=== PATIENT | male | born 1995 | race Hispanic/Latino ===

== ENCOUNTER 2025-03-02 14:19 | Emergency (ER) | payer SELFPAY ==
[2025-03-02 15:25] LABS: Absolute Eosinophils 0.2 K/uL (0-0.5); Absolute Monocytes 0.5 K/uL (0.1-1.3); Absolute Neutrophil 3.8 K/uL (1.8-8.0); Basophils % 0.7 % (0-1.3); Eosinophils % 3.1 % (0-4.4); Hematocrit 49.5 % (39.6-49.0); Hemoglobin 17.8 g/dL (13.6-17.9); MCH 32.4 pg (27.0-35.0); MCV 90.1 fL (80-100); MPV 9.2 fL (7.6-11.3); Monocytes % 8.1 % (3.3-12.3); Neutrophils % 58.1 % (41.7-73.7); Nucleated Red Blood Cells % 0.1 % (0-0); Platelets 268 thou/uL (152-406); RBC Red Blood Cell Count 5.49 M/uL (4.33-5.43); Red Cell Distribution Width 13.4 % (12.1-15.2)
[2025-03-02 15:33] LABS: Specific Gravity < 1.005 (1.005-1.030); Urine Bilirubin NEGATIVE (Negative); Urine Blood Negative (Negative); Urine Clarity Clear (Clear); Urine Color Colorless (Yellow); Urine Glucose NEGATIVE (Negative); Urine Ketones NEGATIVE (Negative); Urine Microscopic Reflex YN NO UMIC; Urine Nitrite NEGATIVE (Negative); Urine Protein NEGATIVE (Negative); Urine Urobilinogen Normal (Normal); Urine pH 7.5 (5.0-7.0)
[2025-03-02 15:37] LABS: PT Prothrombin Time 11.5 SECONDS (10-13.0); PTT, Activated Partial Thromb 31.5 SECONDS (27.2-37.4); Protime INR 1.01
--- NOTE | 2025-03-02 15:44 | RAD REPORT ---
EXAM: Chest Single View HISTORY: 29 years Male [place] COMPARISON: None. FINDINGS: LUNGS/PLEURA: The lungs are clear. No pleural effusions or pneumothorax. No pulmonary edema. CARDIAC/MEDIASTINUM: The cardiac silhouette is within normal limits. UPPER ABDOMEN: No significant abnormality. BONES: No acute abnormality. LINES/TUBES/OTHER: N/A IMPRESSION: No evidence of acute cardiopulmonary disease.
[2025-03-02 15:46] LABS: ALT/SGPT 26 U/L (16-61); Albumin 4.2 g/dL (3.4-5.0); Alkaline Phosphatase 120 U/L (45-117); Anion Gap 9.6 mEq/L (5.0-15.0); BUN Blood Urea Nitrogen 14 mg/dL (7-18); Bicarbonate 26 mEq/L (21-32); Bilirubin Total 0.3 mg/dL (0.2-1.0); Globulin 4.1 g/dL (2.3-3.5); Glomerular Filtration Rate 96 ml/min (=/>90); Glucose Level 99 mg/dL (74-106); Potassium 3.6 mEq/L (3.5-5.1); Protein, Total 8.3 g/dL (6.4-8.2); Sodium Level 137 mEq/L (136-145)
--- NOTE | 2025-03-02 15:55 | RAD REPORT ---
EXAMINATION: Head Brain Wo Cont CLINICAL INDICATION: Male, 29 years old.Dizziness;Confused TECHNIQUE: Axial CT images from the skull base to the vertex without intravenous contrast. Coronal an d sagittal reformatted images were created from the data set. One or more of the following dose reduction techniques were used: Automated exposure control, adjustment of the mA and/or kV according to patient size, and/or iterative reconstruction. Unless otherwise specified, incidental findings do not require dedicated imaging follow-up. [id number]. COMPARISON: No prior exam. FINDINGS: INTRACRANIAL: No acute intracranial hemorrhage. No hydrocephalus. No mass effect or midline shift. No significant white matter disease. VASCULATURE: No visualized abnormalities in the arteries or dural venous sinuses. SCALP/SKULL: No calvarial fracture identified. No acute soft tissue abnormality. SINUSES: The visualized paranasal sinuses are mostly clear. No significant mastoid fluid. IMPRESSION: No acute intracranial abnormality.
[2025-03-02 15:56] LABS: AST/SGOT < 10 U/L (15-37); Bilirubin Direct < 0.2 mg/dL (0-0.2); Bilirubin Indirect, Calculated 0.1 mg/dL (0.2-0.8); Troponin High Sensitivity < 3.0 pg/mL (<58.9)
--- NOTE | 2025-03-02 16:32 | EDPHYS ---
Physician Documentation [facility] Name: Raul Mcmullen Age: 29 yrs Sex: Male : 1995 Arrival Date: 03/02/2025 Time: 14:19 Bed 15 Private MD: ED Physician Junior Ford HPI: 03/02 16:56 This 29 yrs old Male presents to ER via Ambulatory with complaints of kb Dizziness, Near Syncope. 16:56 Patient is a 29-year-old male with a history of seizures who presents for dizziness kb that has been intermittent since November. Patient states sometimes he has confusion whenever this dizziness comes on as well. States he came in today because he felt like he might pass out. Denies chest pain, shortness of breath, seizures.. Historical: - Allergies: 14:25 No Known Allergies; aa5 - Home Meds: 14:25 None [Active]; aa5 - PMHx: 14:25 Seizure; aa5 - PSHx: 14:25 None; aa5 - Immunization history:: Adult Immunizations unknown. - Infectious Disease History:: Denies. - Social history:: Smoking status: Patient/guardian denies using tobacco, Stopped _ months ago 6. ROS: 16:31 Constitutional: As per HPI kb Exam: 15:10 Constitutional: This is a well developed, well nourished patient who is awake, alert, kb and in no acute distress. Head/Face: Normocephalic, atraumatic. ENT: Moist Mucous membranes Cardiovascular: Regular rate Respiratory: Respirations even and unlabored. No increased work of breathing. Talking in full sentences Abdomen/GI: Soft, non-tender. No distention Skin: Warm, dry with normal turgor. Normal color. MS/ Extremity: Pulses equal, no cyanosis. Neurovascular intact. Full, normal range of motion. Neuro: Awake and alert, GCS 15, oriented to person, place, time, and situation. 15:10 ECG was reviewed by the Attending Physician. Vital Signs: 14:23 BP 143 / 81; Pulse 101; Resp 20 S; Temp 97.5(TE); Pulse Ox 100% on R/A; Height 5 ft. 3 aa5 in. (R); 15:22 BP 136 / 78; Pulse 83; Resp 18; Pulse Ox 99% on R/A; ph 16:45 BP 126 / 70 Supine; Pulse 65; ph 16:45 BP 120 / 72 Sitting; Pulse 73; ph 16:45 BP 135 / 89; Pulse 80; Resp 18; Temp 97.2; Pulse Ox 99% on R/A; ph MDM: 14:23 Medical Screening Exam initiated kb 16:31 Data reviewed: vital signs, nurses notes. kb 16:55 Differential diagnosis: cardiac arrhythmia, generalized weakness, idiopathic dizziness, kb near-syncope, Anxiety. Historians other than the Patient: Spouse/Significant Other: Significant other. Counseling: I had a detailed discussion with the patient and/or guardian regarding the historical points, exam findings, and any diagnostic results supporting the discharge/admit diagnosis, lab results, the need for outpatient follow up, a family practitioner, to return to the emergency department if symptoms worsen or persist or if there are any questions or concerns that arise at home. ED course: Patient request medication for anxiety to take as needed because he believes that is the cause of the symptoms.. 03/02 14:29 Order name: Basic Metabolic Panel; Complete Time: 16:05 kb 03/02 14:29 Order name: CBC with Diff; Complete Time: 15:28 kb 03/02 14:29 Order name: Hepatic Function; Complete Time: 16:05 kb 03/02 14:29 Order name: Magnesium; Complete Time: 16:05 kb 03/02 14:29 Order name: Protime (+inr); Complete Time: 15:42 kb 03/02 14:29 Order name: Ptt, Activated; Complete Time: 15:42 kb 03/02 14:29 Order name: Troponin High Sensitivity; Complete Time: 16:05 kb 03/02 14:29 Order name: Urinalysis w/ reflexes; Complete Time: 15:42 kb 03/02 14:29 Order name: Chest Single View XRAY; Complete Time: 15:54 kb 03/02 14:40 Order name: CT Head Brain wo Cont; Complete Time: 16:05 kb 03/02 14:29 Order name: Cardiac monitoring; Complete Time: 15:23 kb 03/02 14:29 Order name: EKG - Nurse/Tech; Complete Time: 15:23 kb 03/02 14:29 Order name: IV Saline Lock; Complete Time: 15:23 kb 03/02 14:29 Order name: Labs collected and sent; Complete Time: 15:23 kb 03/02 14:29 Order name: NPO; Complete Time: 15:23 kb 03/02 14:29 Order name: O2 Per Protocol; Complete Time: 15:23 kb 03/02 14:29 Order name: O2 Sat Monitoring; Complete Time: 15:23 kb 03/02 14:29 Order name: Orthostatics; Complete Time: 16:30 kb EC:10 Rate is 78 beats/min. Rhythm is regular. QRS [place] is Normal. [place] interval is normal at kb 176 msec. QRS interval is normal at 90 msec. QT interval is normal at 385 msec. Administered Medications: No medications were administered Disposition Summary: 03/02/25 16:31 Discharge Ordered Notes: Location: Home kb Condition: Stable kb Diagnosis - Dizziness and giddiness kb - Syncope Near kb Followup: kb - With: Emergency Department - When: As needed - Reason: Worsening of condition Followup: kb - With: Private Physician - When: 2 - 3 days - Reason: Recheck today's complaints, Continuance of care, Re-evaluation by your physician Discharge Instructions: - Discharge Summary Sheet kb - Near-Syncope, [id number] kb - Dizziness, [id number] kb Forms: - Medication Reconciliation Form kb - Antibiotic Education kb - Prescription Opioid Use kb - Patient Portal Instructions kb - Leadership Thank You Letter kb Prescriptions: - Hydroxyzine HCl 25 mg Oral tablet - take 1 tablet ORAL route every 8 hours As needed; 12 tablet; Refills: 0, kb Product Selection Permitted Addendum: 03/04/2025 09:03 Co-signature as Attending Physician, Junior Ford MD I reviewed the patient's care r n provided by the Advanced Practice Provider and agree with the diagnosis and treatment plan. Signatures: Dispatcher [employer] EDNJ Keyonna Soriano, RETAIL STORE MANAGER-C RETAIL STORE MANAGER-Ckb Junior Ford MD MD rn Calderon, Audri, RN RN aa5 Corrections: (The following items were deleted from the chart) 03/02 14:29 14:29 BASIC METABOLIC PANEL+C.LAB.BRZ ordered. EDMS EDMS 14:29 14:29 CBC+H.LAB.BRZ ordered. EDMS EDMS 14:29 14:29 HEPATIC FUNCTION+C.LAB.BRZ ordered. EDMS EDMS 14:29 14:29 MAGNESIUM+C.LAB.BRZ ordered. EDMS EDMS 14: PROTIME (+INR)+COAG.LAB.BRZ ordered. EDMS EDMS 14: PTT, ACTIVATED+COAG.LAB.BRZ ordered. EDMS EDMS 14: Troponin High Sensitivity+C.LAB.BRZ ordered. EDMS EDMS 14: Urinalysis+U.LAB.BRZ ordered. EDMS EDMS 14: Chest Single View+RAD.RAD.BRZ ordered. EDMS EDMS
--- NOTE | 2025-03-02 16:32 | ER ---
Nurse's Notes [facility] Name: Raul Mcmullen Age: 29 yrs Sex: Male : 1995 Arrival Date: 03/02/2025 Time: 14:19 Bed 15 Private MD: Diagnosis: Dizziness and giddiness;Syncope Near Presentation: 03/02 14:23 Chief complaint: Patient states: "dizziness, feeling like I am going to pass out for a aa5 while now". Pt also reports intermittent SOB. Coronavirus screen: At this time, the client does not indicate any symptoms associated with coronavirus-19. Ebola Screen: Patient denies travel to an Ebola-affected area in the 21 days before illness onset. Initial Sepsis Screen: Does the patient meet any 2 criteria? No. Patient's initial sepsis screen is negative. Does the patient have a suspected source of infection? No. Patient's initial sepsis screen is negative. Risk Assessment: Do you want to hurt yourself or someone else? Patient reports no desire to harm self or others. Onset of symptoms was 2024. 14:23 Method Of Arrival: Ambulatory aa5 14:23 Acuity: [place] 3 aa5 Historical: - Allergies: 14:25 No Known Allergies; aa5 - Home Meds: 14:25 None [Active]; aa5 - PMHx: 14:25 Seizure; aa5 - PSHx: 14:25 None; aa5 - Immunization history:: Adult Immunizations unknown. - Infectious Disease History:: Denies. - Social history:: Smoking status: Patient/guardian denies using tobacco, Stopped _ months ago 6. Screenin:30 [facility] ED Fall Risk Assessment (Adult) History of falling in the last 3 months, ph including since admission No falls in past 3 months (0 pts) Confusion or Disorientation No (0 pts) Intoxicated or Sedated No (0 pts) Impaired Gait No (0 pts) Mobility Assist Device Used No (0 pt) Altered Elimination No (0 pt) Score/Fall Risk Level 0 - 2 = Low Risk Oriented to surroundings, Maintained a safe environment, Hourly rounding (assess needs \\T\\ fall precautionary measures) done. Abuse screen: Denies threats or abuse. Denies injuries from another. Nutritional screening: No deficits noted. Tuberculosis screening: No symptoms or risk factors identified. Assessment: 15:21 General: Appears in no apparent distress. comfortable, well groomed, Behavior is calm, ph cooperative, appropriate for age. Pain: Complains of pain in anterior aspect of left upper chest Pain does not radiate. Is intermittent. Neuro: Level of Consciousness is awake, alert, obeys commands, Oriented to person, place, time, situation. Neuro: Reports dizziness, headache. Cardiovascular: Cardiovascular: Reports chest pain, lightheadedness, shortness of breath, Capillary refill < 3 seconds in bilateral fingers Patient's skin is warm and dry. Rhythm is regular. Respiratory: Reports shortness of breath at rest on exertion cough that is Airway is patent Respiratory effort is even, unlabored, Respiratory pattern is regular, symmetrical, pt noted to be occasionally gasping. GI: No signs and/or symptoms were reported involving the gastrointestinal system. Derm: Skin is pink, warm \\T\\ dry. Musculoskeletal: Circulation, motion, and sensation intact. Range of motion: intact in all extremities. Vital Signs: 14:23 BP 143 / 81; Pulse 101; Resp 20 S; Temp 97.5(TE); Pulse Ox 100% on R/A; Height 5 ft. 3 aa5 in. (R); 15:22 BP 136 / 78; Pulse 83; Resp 18; Pulse Ox 99% on R/A; ph 16:45 BP 126 / 70 Supine; Pulse 65; ph 16:45 BP 120 / 72 Sitting; Pulse 73; ph 16:45 BP 135 / 89; Pulse 80; Resp 18; Temp 97.2; Pulse Ox 99% on R/A; ph ED Course: 14:23 Patient arrived in ED. aa5 14:23 Keyonna Soriano FNP-C is [facility]. kb 14:23 Junior Ford MD is Attending Physician. kb 14:23 Arm band placed on. aa5 14:25 Triage completed. aa5 14:29 Maritza Bourgeois, GRACE is Primary Nurse. ph 14:30 Patient has correct armband on for positive identification. Bed in low position. Call ph light in reach. Side rails up X 1. monitoring coordinator on. Pulse ox on. NIBP on. 14:55 Missed attempt(s): 22 gauge in right antecubital area. Bleeding controlled, band aid ph applied, catheter tip intact. 14:56 Initial lab(s) drawn, by me, sent to lab. Urine collected: clean catch specimen, clear, ph EKG done, by ED staff, reviewed by Keyonna BROWN. Inserted saline lock: 20 gauge in right antecubital area, using aseptic technique. Blood collected. Flushed with 10 mL NS. 15:41 Chest Single View XRAY In Process Unspecified. EDMS 15:47 CT Head Brain wo Cont In Process Unspecified. EDMS 17:29 No provider procedures requiring assistance completed. IV discontinued, intact, ph bleeding controlled, No redness/swelling at site. Pressure dressing applied. Administered Medications: No medications were administered Medication: 14:30 VIS not applicable for this client. ph Outcome: 16:31 Discharge ordered by . kb 17:30 Discharged to home ambulatory, with significant other, ph 17:30 Condition: good 17:30 Discharge instructions given to patient, Instructed on discharge instructions, follow up and referral plans. medication usage, Demonstrated understanding of instructions, follow-up care, medications, Prescriptions given X 1, 17:30 Patient left the ED. ph Signatures: Dispatcher [employer] EDSC Keyonna Soriano FNP-C FNP-Ckb Calderon, Audri, RN RN aa5 Maritza Bourgeois RN RN ph
--- NOTE | 2025-03-04 12:12 | EKG ---
Test Date: 2025-03-02 Test Time: 14:48:32 Grant Manager: PH MEASUREMENT RESULTS: Intervals: Rate: 78 [place]: 176 QRSD: 90 QT: 338 QTc: 385 [place]: P: -2 [place]: 176 QRS: 83 T: -2 INTERPRETIVE STATEMENTS: Normal sinus rhythm with sinus arrhythmia Abnormal QRS-T angle, consider primary T wave abnormality Abnormal ECG No previous ECG available for comparison Electronically Signed On 03-04-25 12:08:31 CDT by Paco Rao
[2025-03-04 20:50] VITALS: BP 135/89; TEMP 97.2; O2SAT 99
== END 2025-03-02 17:30 | disposition home or self-care (01) ==
LOC: ER 14:19
DX: R42 Dizziness and giddiness (principal); R55 Syncope and collapse
CPT/HCPCS: 36415; 70450; 71045; 80048; 80076; 81003; 83735; 84484; 85025; 85610; 85730; 93005; 99284